=== PATIENT | female | born 1975 | race Caucasian/White ===

== ENCOUNTER 2018-04-15 09:46 | Emergency (ER) | payer SELFPAY ==
[~2018-04-15] VITALS: Ht 172.7 cm; Wt 100.0 kg
[2018-04-15] MEDS ORDERED: LISINOPRIL20 MG PO (11:26)
[2018-04-15 11:48] VITALS: BP 168/95
== END 2018-04-15 11:48 | disposition home or self-care (01) | DRG 305 ==
LOC: ED 09:46
DX: I10 Essential (primary) hypertension (principal); R51 Headache; R42 Dizziness and giddiness; H53.8 Other visual disturbances; R07.9 Chest pain, unspecified; Z91.19 Patient's noncompliance with other medical treatment and regimen

== ENCOUNTER 2019-04-02 12:49 | Emergency (ER) | payer SELFPAY ==
[~2019-04-02 12:49] MED LIST: LISINOPRIL20 MG PO
[2019-04-02] MEDS ORDERED: AUGMENTIN875TAB PO (13:55)
== END 2019-04-02 13:00 | disposition left against medical advice (07) | DRG 951 ==
LOC: ED 12:49 → LWOBS 12:59
DX: Z91.19 Patient's noncompliance with other medical treatment and regimen (principal)

== ENCOUNTER 2019-04-02 13:39 | Emergency (ER) | payer SELFPAY ==
[~2019-04-02] VITALS: Ht 172.7 cm; Wt 77.0 kg
[2019-04-02] MEDS ORDERED: AUGMENTIN875TAB PO (13:55)
[2019-04-02 14:03] VITALS: BP 181/98
== END 2019-04-02 14:08 | disposition home or self-care (01) | DRG 153 ==
LOC: ED 13:39
DX: J32.9 Chronic sinusitis, unspecified (principal); J02.9 Acute pharyngitis, unspecified; I10 Essential (primary) hypertension; F17.210 Nicotine dependence, cigarettes, uncomplicated